=== PATIENT | female | born 1960 | race Hispanic/Latino ===

== ENCOUNTER 2016-08-23 21:08 | Emergency (ER) | payer OTHER ==
[~2016-08-23] VITALS: Ht 162.6 cm; Wt 52.2 kg
[~2016-08-23 21:08] MED LIST: CRESTOR 10MG10 MG PO; FIORICET 325 MG1 TAB PO; FIORICET 50-301 EACH PO; LEVSIN/SL0.125 MG SL; MEDROL DOSEPAK1 PAC PO; MELOXICAM7.5 MG PO; PRAVASTATIN SOD20 M2 PO; ZOFRAN ODT4 MG PO; ZOFRAN4 M1 SL
--- NOTE | 2016-08-23 21:54 | CT SCAN REPORT ---
EXAMINATION: CT HEAD WITHOUT CONTRAST CLINICAL INFORMATION: Pain. Bleed versus migraine. COMPARISON: Multiple priors, most recent CT head dated 06/12/2015. TECHNIQUE: Contiguous axial imaging was performed from the skull base to vertex without intravenous administration of contrast. DLP: 629.34 mGy-cm FINDINGS: There is no evidence of acute intracranial hemorrhage or territorial infarction. No abnormal mass effect or midline shift is seen. Omif-xq-cpeis matter differentiation is well preserved. No extra-axial fluid collections are identified. The ventricles are normal in size. There is no abnormal attenuation within the brain parenchyma. The osseous structures and soft tissues are normal. The mastoid air cells and visualized portions of the paranasal sinuses are well-aerated. IMPRESSION: No acute intracranial hemorrhage or mass effect. No significant interval change since the prior examination.
--- NOTE | 2016-08-23 22:43 | ED HEADACHE COMPLAINT ---
History of Present Illness General Chief Complaint: Headache Stated Complaint: "PER PT MORTON PAIN RAIDIATING TO SPINE" Source: patient Exam Limitations: no limitations Vital Signs & Intake/Output Vital Signs & Intake/Output Vital Signs Date Time Temp Pulse Resp B/P B/P Pulse O2 O2 Flow FiO2 Mean Ox Delivery Rate 08/233 97.5 76 17 122/84 98 Room Air 08/23 2233 Room Air 08/234 97.7 73 18 131/84 100 Room Air ED Intake and Output 08/24 0000 08/23 1200 Intake Total 0 Output Total Balance 0 Intake, Oral 0 Patient 115 lb Weight Weight Reported by Patient Measurement Method Allergies Coded Allergies: NO KNOWN ALLERGIES (03/01/15) Reconcile Medications Butalb/Acetaminophen/Caffeine (Fioricet 50-300-40 MG Capsule) 50 MG-300 MG-40 MG CAPSULE 1 TAB PO Q6 PRN PAIN Butalb/Acetaminophen/Caffeine (Fioricet 50-300-40 MG Capsule) 50 MG-300 MG-40 MG CAPSULE 1-2 TAB PO Q6P PRN HEADACHE Diazepam (Valium) 5 MG TABLET 1 TAB PO BIDP PRN spasms Pravastatin Sodium 20 MG TABLET 1 TAB PO QPM CHOLESTEROL (Reported) Triage Note: PT TO ED C/O MIGRAINE SINCE LAST NIGHT. TOOK 2 TYLENOL THIS AM AND VOMITTED IT UP. PAIN TO RT SIDE OF HEAD, GOES TO RT SIDE OF NECK. PAIN ALSO BEHIND EYE. PAIN WORSE WITH MOVEMENT. AFEBRILE Triage Nurses Notes Reviewed? yes Onset: Abrupt Duration: week(s): (3), intermittent Timing: recent history Quality/Severity: moderate, severe No Modifying Factors: none HPI: 55-year-old female comes into emergency room for further evaluation of right- sided headache that is been going on for the past 3 weeks and extends down into her neck. Pain is sharp. Intermittent. Some intermittent vomiting. Denies any rashes. Denies any trauma. Patient is seen her primary care doctor area patient has a history of frequent headaches but has never seen a neurologist. Pain is worse with certain movements. Patient had an outpatient x-ray for cervical spine today. She comes in here for further evaluation. There is no past medical history. Denies any other associated symptoms. Headache worse over last 24 hours so she came into the hospital to be further evaluated. No sudden onset headache. No fever. Chills. Full range of motion of neck but having pain with range of motion. (CARLOS DING) Past History Travel History Traveled to [place] past 21 day No Medical History Any Pertinent Medical History? 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 No (CARLOS DING) Review of Systems Review of Systems Constitutional: Reports: no symptoms. Eyes: Reports: no symptoms. Ears, Nose, Throat, Mouth: Reports: no symptoms. Respiratory: Reports: no symptoms. Cardiovascular: Reports: no symptoms. Gastrointestinal/Abdominal: Reports: no symptoms. Genitourinary: Reports: no symptoms. Musculoskeletal: Reports: see HPI. Skin: Reports: no symptoms. Neurological/Psychological: Reports: see HPI. Hematologic/Endocrine: Reports: no symptoms. Endocrine: Reports: no symptoms. Immunologic/Allergic: Reports: no symptoms. All Other Systems: Reviewed and Negative (CARLOS DING) Physical Exam Physical Exam General Appearance: well developed/nourished Head: atraumatic Eyes: Bilateral: normal appearance. Ears, Nose, Throat: normal ENT inspection, hearing grossly normal Neck: normal inspection Respiratory: no respiratory distress Back: normal range of motion Extremities: normal capillary refill, normal range of motion, no edema Psychiatric: awake, alert, oriented x 3 Cranial Nerves: normal hearing, normal speech, PERRL Coordination/Gait: normal finger to nose, normal gait Motor/Sensory: no motor/sensory deficits Skin: intact, normal color Core Measures Severe Sepsis Present: No Septic Shock Present: No (CARLOS DING) Progress Differential Diagnosis: carotid dissection, cav sinus thromb, cluster MORTON, encephalitis, IC mass/tumor, intracranial Hem., meningitis, migraine MORTON, musculoskeletal pain, sinusitis, SSS thrombosis, subarach. Hem., tension MORTON, temporal arteritis, TMJ syndrome, viral cephalgia Plan of Care: Current Medications Sig/Gi Start time Last Medication Dose Stop Time Status Admin Diphenhydramine HCl 50 MG ONCE ONE 08/23 2244 UNVr (Benadryl) 08/23 2245 Ketorolac 30 MG ONCE ONE 08/23 2244 UNVr Tromethamine 08/23 2245 (Toradol) Morphine Sulfate 2 MG ONCE ONE 08/23 2244 UNVr (Morphine) 08/23 2245 Diagnostic Imaging: Viewed by Me: Radiology Read, CT Scan. Discussed w/RAD: Radiology Read, CT Scan. Radiology Impression: SERVICE DATE: 08/23/16 EXAM TYPE: CAT - CT HEAD WO IV CONTRAST EXAMINATION: CT HEAD WITHOUT CONTRAST CLINICAL INFORMATION: Pain. Bleed versus migraine. COMPARISON: Multiple priors, most recent CT head dated . TECHNIQUE: Contiguous axial imaging was performed from the skull base to vertex without intravenous administration of contrast. DLP: 629.34 mGy-cm FINDINGS: There is no evidence of acute intracranial hemorrhage or territorial infarction. No abnormal mass effect or midline shift is seen. Uxvy-hb-mobln matter differentiation is well preserved. No extra-axial fluid collections are identified. The ventricles are normal in size. There is no abnormal attenuation within the brain parenchyma. The osseous structures and soft tissues are normal. The mastoid air cells and visualized portions of the paranasal sinuses are well- aerated. IMPRESSION: No acute intracranial hemorrhage or mass effect. No significant interval change since the prior examination. DICTATED BY: JOE CORNELIUS MD DATE/TIME DICTATED:08/23/162141 INDEPENDENT MARKETING CONSULTANT:[place] DATE/TIME TRANSCRIBED:08/23/162141 Comments: 08/24/2016 12:10:04 AM Patient clinically looks well. Patient is in no apparent distress. Patient is nontoxic-appearing. Neurologically intact. Symptoms are likely consistent with musculoskeletal pain versus atypical migraine. Return if any concerns worsening symptoms. Patient understands and agrees with plan of care. Reevaluated multiple times. Headache improved. Referred to neurologist. Referred back to primary care doctor. No suspicious for subarachnoid hemorrhage. No nuchal rigidity. (CARLOS DING) Departure Departure Disposition: HOME OR SELF CARE Condition: Stable Clinical Impression Primary Impression: Headache Referrals: MEDHAT SUNSHINE,FRANKO RUDOLPH APRN (PCP/Family) Additional Instructions: Take Valium and Fioricet as prescribed. Follow-up with primary care doctor. Return if any concerns worsening symptoms. Please go over all results of today's visit with your primary care doctor. Contact your primary care doctor to let them know you were here in the emergency room. There may be nonspecific findings which may not be related to your visit today here in the emergency room but may require further evaluation and chronic monitoring by your primary care doctor. If you had a laceration today the chance of foreign body always remains. You should follow-up with your primary care doctor for recheck in 3-5 days for a wound check. If you had an x-ray done there is a chance that a fracture could have been missed on initial read and you should follow-up with your primary care doctor for repeat x-rays if symptoms persist. If your blood pressure was elevated here in the emergency room please have rechecked by her primary care doctor within the next 48 hours by your primary care doctor. If you were prescribed a narcotic here in the emergency room or any type of controlled substances you're not allowed to drive while taking this medication or operate any type of heavy machinery. Narcotics can make you feel lightheaded dizziness nausea and can cause constipation. You may need to medicinal plant picker a stool softener. Thank you for choosing [facility] emergency room. Please return to the emergency room immediately if you have any other concerns worsening of symptoms. Departure Forms: Customer Survey General Discharge Information Prescriptions: Current Visit Scripts Diazepam (Valium) 1 TAB PO BIDP PRN spasms #15 TAB Butalb/Acetaminophen/Caffeine (Fioricet 50-300-40 MG Capsule) 1-2 TAB PO Q6P PRN HEADACHE #20 MG (CARLOS DING) PA/WEATHERIZATION DIRECTOR Co-Sign Statement Statement: ED Attending supervision documentation- [] I saw and evaluated the patient. I have also reviewed all the pertinent lab results and diagnostic results. I agree with the findings and the plan of care as documented in the PA's/WEATHERIZATION DIRECTOR's documentation. [x] I have reviewed the ED Record and agree with the PA's/WEATHERIZATION DIRECTOR's documentation. [] Additions or exceptions (if any) to the PAs/WEATHERIZATION DIRECTOR's note and plan are summarized below: [] (ROSA SUNSHINE,KISHA Valentine)
[2016-08-23 23:23] VITALS: BP 122/84
[2016-08-23] MEDS ORDERED: VALIUM5 M2 PO (23:23)
[2016-08-23] MEDS ORDERED: FIORICET 50-301 EACH PO (23:23)
== END 2016-08-23 23:29 ==
LOC: ERH 21:08
DX: R51 Headache (principal)
CPT/HCPCS: 96374; 96375; J1200; J1885